=== PATIENT | female | born 1975 | race African-American/Black ===

== ENCOUNTER 2022-06-29 22:24 | Emergency (ER) | payer OTHER ==
[~2022-06-29] VITALS: Ht 172.7 cm; Wt 95.5 kg
[2022-06-30] MEDS ORDERED: PERTUSS(ACELL),DIPH,TET VAC/PF 0.5 ML SYRINGE IM. ONE (00:15)
[2022-06-30] MEDS ORDERED: BACITRACIN 28 GM OINTMENT TP ONE (00:15)
[2022-06-30] MEDS ORDERED: LIDOCAINE 1%/EPI 1:200,000/PF 30 ML VIAL SQ ONE (00:15)
[2022-06-30 02:35] VITALS: BP 129/71
== END 2022-06-30 03:04 | disposition home or self-care (01) ==
LOC: EMS 22:27
DX: S51.811A Laceration without foreign body of right forearm, initial encounter (principal); S61.511A Laceration without foreign body of right wrist, initial encounter; W19.XXXA Unspecified fall, initial encounter; Y93.89 Activity, other specified; Y92.89 Other specified places as the place of occurrence of the external cause; Y99.8 Other external cause status
CPT/HCPCS: 99283; 90715; 90471; 12004; J3490; 12001; 96372